=== PATIENT | male | born 1955 | race African-American/Black ===

== ENCOUNTER 2017-07-12 19:43 | Emergency (ER) | payer MEDICARE, MEDICAID ==
[~2017-07-12] VITALS: Ht 165.1 cm; Wt 77.3 kg
[2017-07-12 19:58] VITALS: TEMP 98.7
[2017-07-12] MEDS ORDERED: ZOLOFT 25MG25 MG PO (20:03)
[2017-07-12 21:20] VITALS: BP 117/73; PULSE 45
== END 2017-07-12 21:30 | disposition home or self-care (01) ==
LOC: COL.ER 19:43
DX: L84 Corns and callosities (principal); M79.674 Pain in right toe(s); I10 Essential (primary) hypertension

== ENCOUNTER → 2018-03-14 | Outpatient (REF) ==
[~2018-03-14] MED LIST: ATIVAN 0.50.5 MG/TAB PO; CLARITIN 1010 MG/TAB PO; FLOMAX 0.40.4 MG/CAP PO; PROTONIX20 MG PO; SENOKOT S 50 MG1 TAB PO; TYLENOL 500MG500 MG PO; XARELTO15 MG PO; ZOLOFT 25MG25 MG PO; ZOLOFT 50MG50 MG PO
[2018-03-14 11:36] LABS: HEMATOCRIT 25.4 % (42.0-52.0); HEMOGLOBIN 8.3 g/dl (13.5-18.0); MEAN CELL VOLUME 92 fl (80.0-100.0); MEAN CORPUSCULAR HEMOGLOBIN 30 pg (27.0-31.0); MEAN CORPUSCULAR HGB CONC 33 g/dl (33.0-37.0); MEAN PLATELET VOLUME 9.9 fl (7.4-10.4); PLATELET COUNT 357 K/mm3 (130-400); RED BLOOD COUNT 2.75 M/mm3 (4.20-5.60); REDCELL DISTRIBUTION WIDTH-CV 14.6 % (11.5-14.5)
== END ==
LOC: ZLAB.STJ 11:27
PROVIDERS: Internal Medicine
DX: R31.9 Hematuria, unspecified (principal)

== ENCOUNTER 2018-03-15 12:33 | Emergency (ER) | payer MEDICARE, MEDICAID ==
[~2018-03-15] VITALS: Ht 165.1 cm; Wt 72.7 kg
[~2018-03-15 12:33] MED LIST changes: -ATIVAN 0.50.5 MG/TAB PO; -CLARITIN 1010 MG/TAB PO; -FLOMAX 0.40.4 MG/CAP PO; -PROTONIX20 MG PO; -SENOKOT S 50 MG1 TAB PO; -TYLENOL 500MG500 MG PO; -XARELTO15 MG PO; -ZOLOFT 50MG50 MG PO
[2018-03-15 12:34] VITALS: TEMP 97.8
[2018-03-15 14:25] LABS: BASO # 0.1 (0.0-0.2); BASO % 0.6 % (0.0-2.0); EOS % 0.3 % (0-4.0); GRAN # 7.6 (1.4-6.5); GRAN % 76.5 % (42.2-75.2); LYMPH # 1.6 (1.2-3.4); MEAN CELL VOLUME 95 fl (80.0-100.0); MEAN CORPUSCULAR HGB CONC 32 g/dl (33.0-37.0); MEAN PLATELET VOLUME 9.4 fl (7.4-10.4); MONO # 0.6 (0.1-0.6); MONO % 5.8 % (1.7-9.3); PLATELET COUNT 353 K/mm3 (130-400); RED BLOOD COUNT 2.49 M/mm3 (4.20-5.60); REDCELL DISTRIBUTION WIDTH-CV 14.7 % (11.5-14.5)
[2018-03-15 14:28] LABS: HEMATOCRIT 23.7 % (42.0-52.0); HEMOGLOBIN 7.5 g/dl (13.5-18.0); MEAN CORPUSCULAR HEMOGLOBIN 30 pg (27.0-31.0)
[2018-03-15 14:29] LABS: INR 2.2 (0.8-3.0); PROTHROMBIN TIME 25.7 SECONDS (9.7-12.8)
[2018-03-15 14:32] LABS: PARTIAL THROMBOPLASTIN TIME 38.3 SECONDS (26.0-37.0)
[2018-03-15 14:33] LABS: ALBUMIN 2.9 gm/dL (3.5-5.0); BILIRUBIN,TOTAL 0.1 mg/dL (0.0-1.0); CREATININE, serum 1.21 mg/dL (0.66-1.25); POTASSIUM 4.1 mmol/L (3.4-5.0); TOTAL PROTEIN 7.3 gm/dL (6.4-8.2)
[2018-03-15] MEDS ORDERED: XARELTO15 MG PO (16:06)
[2018-03-15] MEDS ORDERED: PROTONIX20 MG PO (16:07)
[2018-03-15] MEDS ORDERED: ZOLOFT 50MG50 MG PO (16:07)
[2018-03-15] MEDS ORDERED: SENOKOT S 50 MG1 TAB PO (16:08)
[2018-03-15] MEDS ORDERED: FLOMAX 0.40.4 MG/CAP PO (16:09)
[2018-03-15] MEDS ORDERED: TYLENOL 500MG500 MG PO (16:10)
[2018-03-15] MEDS ORDERED: ATIVAN 0.50.5 MG/TAB PO (16:10)
[2018-03-15] MEDS ORDERED: CLARITIN 1010 MG/TAB PO (16:11)
[2018-03-15 16:15] VITALS: BP 113/45; PULSE 67
== END 2018-03-15 16:35 | disposition short-term general hospital (02) ==
LOC: COL.ER 12:33
PROVIDERS: Physician Assistant
DX: N99.89 Other postprocedural complications and disorders of genitourinary system (principal); R31.9 Hematuria, unspecified; D68.32 Hemorrhagic disorder due to extrinsic circulating anticoagulants; D62 Acute posthemorrhagic anemia; Z79.01 Long term (current) use of anticoagulants
CPT/HCPCS: J7030